=== PATIENT | female | born 1965 | race Caucasian/White ===

== ENCOUNTER → 2018-04-06 | Outpatient (REF) | payer BC ==
[2018-04-07 08:08] LABS: LDL DIRECT 70 mg/dL (0-99)
== END ==
LOC: M LAB REF 12:56
DX: E78.5 Hyperlipidemia, unspecified (principal)
CPT/HCPCS: 83721

== ENCOUNTER 2019-03-14 11:28 | Emergency (ER) | payer OTHER, BC ==
[~2019-03-14] VITALS: Ht 172.7 cm; Wt 80.9 kg
[2019-03-14] MEDS ORDERED: MONT10TA2 (11:37)
[2019-03-14] MEDS ORDERED: multi vitamin (11:37)
[2019-03-14] MEDS ORDERED: ATOR1TAB21 (11:37)
[2019-03-14] MEDS ORDERED: VENL75CA47 (11:37)
[2019-03-14] MEDS ORDERED: otc allergy med (11:37)
[2019-03-14] MEDS ORDERED: AUGM875T28 PO (13:12)
[2019-03-14] MEDS ORDERED: [UNRECOGNIZED DRUG - OTHER] IM ONE (13:15)
[2019-03-14] MEDS ORDERED: ADACEL/BOOSTRIX VACCINE (DIPHTH/PERTUSS/ACELL/TETANUS)0.5ML SYR (90715) IM ONE (13:15)
[2019-03-14 13:24] VITALS: BP 140/93
[2019-03-15 07:10] LABS: HEPATITIS B SURFACE ANTIBODY NEGATIVE (POSITIVE); HEPATITIS B SURFACE ANTIGEN NEGATIVE (NEGATIVE); HEPATITIS C VIRUS ABY INDEX 0.1 INDEX (<0.8)
== END 2019-03-14 14:13 | disposition home or self-care (01) ==
LOC: M ED 11:28
DX: S81.831A Puncture wound without foreign body, right lower leg, initial encounter (principal); W50.3XXA Accidental bite by another person, initial encounter; Y92.218 Other school as the place of occurrence of the external cause; Z77.21 Contact with and (suspected) exposure to potentially hazardous body fluids; Z88.8 Allergy status to other drugs, medicaments and biological substances

== ENCOUNTER → 2021-11-21 | Outpatient (REF) | payer OTHER ==
[~2021-11-21] MED LIST: ATOR1TAB21; AUGM875T28 PO; MONT10TA97; VENL75CA47; multi vitamin; otc allergy med
== END ==
LOC: M LAB REF 16:18
PROVIDERS: ATTEND Physician Assistant Medical
DX: R50.9 Fever, unspecified (principal); J06.9 Acute upper respiratory infection, unspecified

== ENCOUNTER → 2023-03-01 | Outpatient (REF) | payer OTHER | LOC: M LAB REF 11:36 | PROVIDERS: ATTEND Family Medicine | DX: E07.9 Disorder of thyroid, unspecified (principal) ==

== ENCOUNTER 2024-01-17 10:01 | Day surgery (SDC) | payer OTHER ==
[~2024-01-17] VITALS: Ht 172.7 cm; Wt 81.4 kg
[~2024-01-17 10:01] MED LIST changes: +ALLE180T33 PO; +CALC500T68 PO; +MONT10TA97 PO; +THERTAB52 PO; +VENL75CA47 PO; +VENTAER INH
[2024-01-17] MEDS: NS 1,000 ML IV ONE (10:19)
[2024-01-17] MEDS ORDERED: propofoL 500 MG/50 ML VIAL As Ordered ONE (11:17)
[2024-01-17] MEDS ORDERED: LIDOCAINE 2% 100MG/5ML SDV (FOR ANES.) As Ordered ONE (11:17)
[2024-01-17 11:45] VITALS: BP 121/80; TEMP 97.5; O2SAT 97
== END 2024-01-17 11:59 | disposition home or self-care (01) ==
LOC: M OPP 10:01
PROVIDERS: ATTEND Internal Medicine Gastroenterology
DX: Z12.11 Encounter for screening for malignant neoplasm of colon (principal); K64.0 First degree hemorrhoids; Z79.51 Long term (current) use of inhaled steroids; Z79.899 Other long term (current) drug therapy; Z88.8 Allergy status to other drugs, medicaments and biological substances; Z91.041 Radiographic dye allergy status; Z91.048 Other nonmedicinal substance allergy status

== ENCOUNTER → 2024-03-15 | Outpatient (REF) | payer OTHER | LOC: M SFHCDERM 17:37 | PROVIDERS: ATTEND Physician Assistant | DX: L82.0 Inflamed seborrheic keratosis (principal) ==

== ENCOUNTER → 2024-10-18 | Outpatient (CLI) | payer OTHER | LOC: M RAD 15:32 | PROVIDERS: ATTEND Family Medicine | DX: N13.30 Unspecified hydronephrosis (principal) ==